=== PATIENT | male | born 1965 | race Caucasian/White ===

== ENCOUNTER → 2018-02-02 16:37 | Outpatient (CLI) | payer OTHER, MEDICAID, SELFPAY ==
[2018-02-02 18:49] LABS: Urine N gonorrhoeae NOT DETECTED
[2018-02-02 19:06] LABS: Urine Chlamydia NOT DETECTED
[2018-02-05 13:22] LABS: Hepatitis A Antibody IgM NONREACTIVE; Hepatitis Acute Panel Interp 0.02; Hepatitis B Core Antibody IgM NONREACTIVE; Hepatitis B Surface Antigen NONREACTIVE; Hepatitis C Antibody NONREACTIVE
[2018-02-07 13:19] LABS: HSV 1 IgM Screen Negative (Negative); HSV 2 IgM Screen Negative (Negative)
[2018-02-09 13:41] LABS: Rapid Plasma Reagin NON-REACTIVE
== END ==
PROVIDERS: Visit Provider Physician Assistant
DX: A64 Unspecified sexually transmitted disease (principal)
CPT/HCPCS: 36415; 80074; 86592; 86694; 87491; 87591

== ENCOUNTER 2018-03-28 16:46 | Emergency (ER) | payer OTHER, MEDICAID, SELFPAY ==
--- NOTE | 2018-03-28 | DI.RAD.S_ITS ---
PROCEDURE: XR LUMBAR SPINE 2-3V INDICATIONS: PAIN TECHNIQUE: 3 views of the lumbar spine were acquired. COMPARISON: [facility], CR, XR THORACIC SPINE 3V, 03/28/2018, 18:12. FINDINGS: Bones: 5 [id number] vertebrae are present. There is normal bony alignment. No vertebral body compression fractures. No suspicious bony lesions. Mild to moderate disc space narrowing is seen at the L5-S1 level. The disc heights otherwise are well-preserved. Soft tissues: Overlying bowel gas pattern is normal. No suspicious soft tissue calcifications. Presumed appendectomy clips are seen. IMPRESSION: Focal L5-S1 degenerative change is seen. No acute bony abnormality is seen. Presumed prior appendectomy. Dictated by: Abelino Prasad M.D. on 03/28/2018 at 17:39 Approved by: Abelino Prasad M.D. on 03/28/2018 at 17:40
[2018-03-28 16:59] VITALS: BP 158/92; PULSE 67; RESP 18; TEMP 36.4; O2SAT 100
--- NOTE | 2018-03-28 17:02 | DI.RAD.S_ITS ---
PROCEDURE: XR ANKLE RT MIN 3V INDICATIONS: rt ankle pain, fall from roof TECHNIQUE: 3 views of the ankle were acquired. COMPARISON: None. FINDINGS: Bones: There is a highly comminuted fracture seen of the calcaneus. No additional fractures are detected. Ankle mortise is normally aligned. No suspicious bony lesions. The talar dome demonstrates no ev abnormality. Soft tissues: No significant soft tissue abnormality can be seen. IMPRESSION: Highly comminuted fracture of the calcaneus. Please consider a dedicated CT study for further evaluation. Dictated by: Abelino Prasad M.D. on 03/28/2018 at 16:29 Approved by: Abelino Prasad M.D. on 03/28/2018 at 16:30
--- NOTE | 2018-03-28 17:46 | DI.CT.S_ITS ---
PROCEDURE: CT LE RT WO CON INDICATIONS: Calcaneous fracture TECHNIQUE: Noncontrast 1-1.5 mm axial sections acquired from above the tibiotalar joint to the bottom of the calcaneus, with coronal and sagittal reformats. COMPARISON: [facility], CR, XR ANKLE RT MIN 3V, 03/28/2018, 17:12. FINDINGS: Image quality: Excellent. Bones: There is an extensive comminuted fracture of the calcaneus with fracture lines extending to all facets of the subtalar joint and the calcaneocuboid articulation. Fracture also extends to the insertion of the Achilles tendon posteriorly. Remaining visualized osseous structures appear intact. No tibiotalar joint effusion. Soft tissues: The Achilles tendon appears intact. The visualized flexor, extensor, and peroneal tendons also appear intact. There is subcutaneous edema demonstrated in the hindfoot. IMPRESSION: 1. Extensive comminuted fracture of the calcaneus with extension to the subtalar joint and calcaneal cuboid articulation. Dictated by: Major Paige M.D. on 03/28/2018 at 18:54 Approved by: Major Paige M.D. on 03/28/2018 at 19:03
--- NOTE | 2018-03-28 17:46 | DI.RAD.S_ITS ---
PROCEDURE: XR THORACIC SPINE 3V INDICATIONS: fall TECHNIQUE: 3 views of the thoracic spine were acquired. COMPARISON: None. FINDINGS: Bones: No fractures or dislocations. No suspicious bony lesions. 12 pairs of ribs are noted, and appear intact where visualized. Soft tissues: No paravertebral stripe thickening. IMPRESSION: 1. No fracture or subluxation. Dictated by: Major Paige M.D. on 03/28/2018 at 19:40 Approved by: Major Paige M.D. on 03/28/2018 at 19:41
[2018-03-28] MEDS: MORPHINE 4 MG/ML INJ IM (18:05)
[2018-03-28] MEDS: ONDANSETRON 4 MG ODT PO (18:05)
--- NOTE | 2018-03-28 18:54 | ED.LOWEXIN ---
HPI - Extremity Injury (Lower) <TRUPTI JonesBC - Last Filed: 03/28/18 21:46> General Chief Complaint: Extremity Injury, Lower Stated Complaint: FALL FROM ROOF, THINKS BROKE HIS RIGHT ANKLE Time Seen by Provider: 03/28/18 17:40 Source: patient and family Mode of arrival: wheelchair Limitations: no limitations History of Present Illness HPI Narrative: Patient is a healthy 53-year-old male who presents after falling off of a 12 ft roof. He states he slipped, held onto the gutter and then landed on his right foot and ankle. He presents with chief complaint of right ankle pain and right foot pain. He denies any C-spine tenderness or spinal tenderness. He denies any his head, loss of consciousness hip pain abdominal pain or any other pain other than his foot pain. He states he is able to wiggle his toes. He denies previous injury to that ankle. He denies laceration abrasion or injury to the skin. He denies hitting his head, neck pain or back pain. Related Data Home Medications Medication Instructions Recorded Confirmed omeprazole 20 mg capsule,delayed 20 mg PO DAILY 02/02/18 02/02/18 release Previous Rx's Medication Instructions Recorded triamcinolone acetonide 1 libertad TOPICAL BID #15 gm 06/24/16 ondansetron 4 mg PO TID-QID PRN #10 tab 03/28/18 oxycodone-acetaminophen 2 tab PO Q4-6H PRN #20 tab 03/28/18 Allergies Allergy/AdvReac Type Severity Reaction Status Date / Time dog dander [DOG DANDER] Allergy Unknown Unverified 02/02/18 16:11 Review of Systems <GLADYS Jones - Last Filed: 03/28/18 21:46> Review of Systems GENERAL: Denies chills, fatigue, malaise, fever, sweats. HEENT: Denies sinus pain, ear pain, sore throat, difficulty swallowing, dizziness. RESPIRATORY: Denies dyspnea, cough, wheezing, hemoptysis, sputum. CARDIOVASCULAR: Denies chest pain, palpitations, orthopnea, edema, GASTROINTESTINAL: Denies nausea, vomiting, abdominal pain, diarrhea, constipation, melena. : Denies dysuria, frequency, incontinence, hematuria, urinary retention. MUSCULOSKELETAL: See HPI SKIN: See HPI NEUROLOGIC: Denies weakness, headache, numbness, change in speech, confusion, seizures, incoordination. PSYCHIATRIC: No concerning psychosocial issues. 12 point review of systems is negative except for those stated above Exam <KAREN Jones-BC - Last Filed: 03/28/18 21:46> Narrative Exam Narrative: GENERAL: This is a well-nourished, well-developed patient, lying on stretcher HEAD: Atraumatic. Normocephalic. No temporal or scalp tenderness. EYES: Pupils equal round and reactive. Extraocular motions intact. No scleral icterus. No injection or drainage. ENT: Nose without bleeding, purulent drainage or septal hematoma. Throat without erythema, tonsillar hypertrophy or exudate. Uvula midline. Airway patent. NECK: Trachea midline. No JVD or lymphadenopathy. Supple, nontender, no meningeal signs. CARDIOVASCULAR: Regular rate and rhythm without murmurs, gallops, or rubs. RESPIRATORY: Clear to auscultation. Breath sounds equal bilaterally. No wheezes, rales, or rhonchi. GASTROINTESTINAL: Abdomen soft, non-tender, nondistended. No hepato-splenomegaly, or palpable masses. No guarding. EXTREMITIES: pain to palpation noted right ft and ankle. Positive pedal pulses. Patient is able to wiggle all 5 toes on his right foot. Pelvis is stable to rock. BACK: Nontender without deformity or crepitance. No flank tenderness. No pain to C-spine or spinal palpation. NEURO: AOx3. Cranial nerves grossly intact. Strength equal upper and lower extremity bilaterally. SKIN: Slight edema noted right ankle and heel. Skin is intact no abrasion or laceration. Initial Vital Signs Initial Vital Signs: Vital Signs Temperature 97.6 F 03/28/18 16:59 Pulse Rate 67 03/28/18 16:59 Respiratory Rate 18 03/28/18 16:59 Blood Pressure 158/92 H 03/28/18 16:59 Pulse Oximetry 100 03/28/18 16:59 <Vinod Barr DO - Last Filed: 03/28/18 22:13> Initial Vital Signs Initial Vital Signs: Vital Signs Temperature 97.6 F 03/28/18 16:59 Pulse Rate 67 03/28/18 16:59 Respiratory Rate 18 03/28/18 16:59 Blood Pressure 158/92 H 03/28/18 16:59 Pulse Oximetry 100 03/28/18 16:59 Procedures <China ForbesKAREN-BC - Last Filed: 03/28/18 21:46> Orthopedic Splinting/Casting Injury #1: Side: right Lower Extremity Injury Location: ankle and foot Lower Extremity Immobilizer: posterior splint and Nash wrap Other Orthopedic Equipment: crutches Additional Comments: Pulse motor sensory intact before and after splint application. Course <China MiguelKAREN pickett-BC - Last Filed: 03/28/18 21:46> Course Narrative: I checked on the patient several times throughout his stay in the emergency department. Given the patient's mechanism of injury, I elected to get plain films of his L-spine and T-spine as well. Orders Ordered: ED Orders 03/28/18 17:02 XR ankle RT min 3V Stat 03/28/18 17:46 CT LE RT wo con Stat XR thoracic spine 3V Stat Discontinued Medications Morphine Sulfate (Morphine) 4 mg IM NOW ONE Stop: 03/28/18 17:47 Last Admin: 03/28/18 18:05 Dose: 4 mg Ondansetron HCl (Zofran Odt) 4 mg PO NOW ONE Stop: 03/28/18 17:47 Last Admin: 03/28/18 18:05 Dose: 4 mg Oxycodone/Acetaminophen (Percocet 5/325) 2 tab PO NOW ONE Stop: 03/28/18 19:50 Last Admin: 03/28/18 20:17 Dose: 2 tab Oxycodone/Acetaminophen (Endocet 5/325 Prepack) 1 bottle MISC SEEINSTR ONE Stop: 03/28/18 21:27 Last Admin: 03/28/18 21:33 Dose: 1 bottle Consultations Consultation #1: I spoke with Dr. Stanford from [facility] given the complexity of the patient's fracture. He suggested a back slab splint that was bulky, nonweightbearing and to call [facility] in the morning. He also suggested the patient be seen by Dr. Sena if able, and that would be organized in the morning if possible. Otherwise the patient may be referred down to [place]. I discussed this at length with the patient. Vital Signs - 8 hr 03/28/18 16:59 03/28/18 20:43 Temperature 97.6 F Pulse Rate 67 75 Respiratory Rate 18 15 Blood Pressure 158/92 H Blood Pressure [Right Arm] 142/86 H Pulse Oximetry 100 100 <Vinod Barr DO - Last Filed: 03/28/18 22:13> Orders Ordered: ED Orders 03/28/18 17:02 XR ankle RT min 3V Stat 03/28/18 17:46 CT LE RT wo con Stat XR thoracic spine 3V Stat Discontinued Medications Morphine Sulfate (Morphine) 4 mg IM NOW ONE Stop: 03/28/18 17:47 Last Admin: 03/28/18 18:05 Dose: 4 mg Ondansetron HCl (Zofran Odt) 4 mg PO NOW ONE Stop: 03/28/18 17:47 Last Admin: 03/28/18 18:05 Dose: 4 mg Oxycodone/Acetaminophen (Percocet 5/325) 2 tab PO NOW ONE Stop: 03/28/18 19:50 Last Admin: 03/28/18 20:17 Dose: 2 tab Oxycodone/Acetaminophen (Endocet 5/325 Prepack) 1 bottle MISC SEEINSTR ONE Stop: 03/28/18 21:27 Last Admin: 03/28/18 21:33 Dose: 1 bottle Vital Signs - 8 hr 03/28/18 16:59 03/28/18 20:43 Temperature 97.6 F Pulse Rate 67 75 Respiratory Rate 18 15 Blood Pressure 158/92 H Blood Pressure [Right Arm] 142/86 H Pulse Oximetry 100 100 MDM - Extremity Injury (Lower) <GLADYS Jones - Last Filed: 03/28/18 21:46> Differential Diagnosis Likely ankle sprain and strain, fracture of toe and ankle fracture Imaging Data ankle xray: Radiologist's impression: [address] [address] XRay Report Signed Patient: Marky Gonzalez WMR#: [id number] : 1965Acct:[id number] Age/Sex: 53 / MDate of Service: 03/28/18 Loc: ED Accession Number: [id number] Procedure: XR ankle RT min 3V Ordering Provider: Sherita Palafox D.O. PROCEDURE: XR ANKLE RT MIN 3V INDICATIONS: rt ankle pain, fall from roof TECHNIQUE: 3 views of the ankle were acquired. COMPARISON: None. FINDINGS: Bones: There is a highly comminuted fracture seen of the calcaneus. No additional fractures are detected. Ankle mortise is normally aligned. No suspicious bony lesions. The talar dome demonstrates no ev abnormality. Soft tissues: No significant soft tissue abnormality can be seen. IMPRESSION: Highly comminuted fracture of the calcaneus. Please consider a dedicated CT study for further evaluation. Dictated by: Abelino Prasad M.D. on 03/28/2018 at 16:29 Approved by: Abelino Prasad M.D. on 03/28/2018 at 16:30 lumbar xray : Radiologist's impression: [address] [address] XRay Report Signed Patient: Marky Gonzalez WMR#: [id number] : 1965Acct:[id number] Age/Sex: 53 / MDate of Service: 03/28/18 Loc: ED Accession Number: [id number] Procedure: XR lumbar spine 2-3V Ordering Provider: China Forbes- PROCEDURE: XR LUMBAR SPINE 2-3V INDICATIONS: PAIN TECHNIQUE: 3 views of the lumbar spine were acquired. COMPARISON: [facility], [place], XR THORACIC SPINE 3V, 03/28/2018, 18:12. FINDINGS: Bones: 5 [id number] vertebrae are present. There is normal bony alignment. No vertebral body compression fractures. No suspicious bony lesions. Mild to moderate disc space narrowing is seen at the L5-S1 level. The disc heights otherwise are well-preserved. Soft tissues: Overlying bowel gas pattern is normal. No suspicious soft tissue calcifications. Presumed appendectomy clips are seen. IMPRESSION: Focal L5-S1 degenerative change is seen. No acute bony abnormality is seen. Presumed prior appendectomy. Dictated by: Abelino Prasad M.D. on 03/28/2018 at 17:39 Approved by: Abelino Prasad M.D. on 03/28/2018 at 17:40 t spine xray : Radiologist's impression: [address] [address] XRay Report Signed Patient: Marky Gonzalez WMR#: [id number] : 1965Acct:[id number] Age/Sex: 53 / MDate of Service: 03/28/18 Loc: ED Accession Number: [id number] Procedure: XR thoracic spine 3V Ordering Provider: China Forbes PROCEDURE: XR THORACIC SPINE 3V INDICATIONS: fall TECHNIQUE: 3 views of the thoracic spine were acquired. COMPARISON: None. FINDINGS: Bones: No fractures or dislocations. No suspicious bony lesions. 12 pairs of ribs are noted, and appear intact where visualized. Soft tissues: No paravertebral stripe thickening. IMPRESSION: 1. No fracture or subluxation. Dictated by: Major Paige M.D. on 03/28/2018 at 19:40 Approved by: Major Paige M.D. on 03/28/2018 at 19:[address] : Radiologist's impression: [place] [address] CT Scan Report Signed Patient: Marky Gonzalez WMR#: [id number] : 1965Acct:[id number] Age/Sex: 53 / MDate of Service: 03/28/18 Loc: ED Accession Number: [id number] Procedure: CT LE RT wo con Ordering Provider: China Forbes PROCEDURE: CT LE RT WO CON INDICATIONS: Calcaneous fracture TECHNIQUE: Noncontrast 1-1.5 mm axial sections acquired from above the tibiotalar joint to the bottom of the calcaneus, with coronal and sagittal reformats. COMPARISON: [facility], CR, XR ANKLE RT MIN 3V, 03/28/2018, 17:12. FINDINGS: Image quality: Excellent. Bones: There is an extensive comminuted fracture of the calcaneus with fracture lines extending to all facets of the subtalar joint and the calcaneocuboid articulation. Fracture also extends to the insertion of the Achilles tendon posteriorly. Remaining visualized osseous structures appear intact. No tibiotalar joint effusion. Soft tissues: The Achilles tendon appears intact. The visualized flexor, extensor, and peroneal tendons also appear intact. There is subcutaneous edema demonstrated in the hindfoot. IMPRESSION: 1. Extensive comminuted fracture of the calcaneus with extension to the subtalar joint and calcaneal cuboid articulation. Dictated by: Major Paige M.D. on 03/28/2018 at 18:54 Approved by: Major Paige M.D. on 03/28/2018 at 19:03 [facility] Narrative Medical decision making narrative: Patient is a 53-year-old male who fell off of a 12 ft roof. He has a complex comminuted calcaneus fracture. Expert consultation was obtained from Dr. Stanford and the patient was splinted appropriately with a posterior splint. Pulse motor and sensory were intact before and after splint application. I discussed at length return precautions of cold toes, concerned for circulation. I encouraged him to call [facility] 1st thing in the morning as discussed with the on-call physician. Given the mechanism of injury, the patient also had T and L-spine films taken which were negative. Patient was given pain medication and nausea medication the emergency department as well as a take home pack and prescriptions. He had no questions or concerns upon discharge. We discussed at length being nonweightbearing and return precautions to the emergency department as well as rest ice compression elevation. Discharge Plan Departure Patient Disposition: Home Clinical Impression: Calcaneus fracture, right Discharge Date/Time: 03/28/18 21:35 Interventions: ED Discharge Assessment Last Done: 03/28/18 21:35 Instructions: How to Use Crutches, How To Perform RICE (Rest, Ice, Compress, Elevate), DI for Calcaneus Fracture Activity Restrictions/Additional Instructions: Please use rest ice compression elevation for her calcaneus fracture. Please monitor the circulation in your toes and come back to the emergency department if necessary. Please be nonweightbearing please call [facility] in the morning. I spoke with Dr. Hernandez about you lucia as he was on-call, but he stated that Dr. Sena would be the best one to see you with your fracture. If she is not available, they may refer you down to [place]. Please aggressively ice and elevate your foot. Prescriptions: New ondansetron 4 mg tablet,disintegrating 4 mg PO TID-QID PRN (Reason: nausea and vomiting) Qty: 10 RF: 0 oxycodone-acetaminophen 5-300 mg tablet 2 tab PO Q4-6H PRN (Reason: pain) Qty: 20 RF: 0 No Action omeprazole 20 mg capsule,delayed release(DR/EC) 20 mg PO DAILY RF: 0 triamcinolone acetonide 0.5 % cream 1 libertad Topical BID Qty: 15 RF: 3 Referrals: [facility] [Provider Group] <Vinod Barr DO - Last Filed: 03/28/18 22:13> Cosign ED Attending Coscolleenature Attestation: I was available for consultation during this patient's emergency department encounter
--- NOTE | 2018-03-28 18:58 | ED_ITS ---
HPI - Extremity Injury (Lower) <TRUPTI JonesBC - Last Filed: 03/28/18 21:46> General Chief Complaint: Extremity Injury, Lower Stated Complaint: FALL FROM ROOF, THINKS BROKE HIS RIGHT ANKLE Time Seen by Provider: 03/28/18 17:40 Source: patient and family Mode of arrival: wheelchair Limitations: no limitations History of Present Illness HPI Narrative: Patient is a healthy 53-year-old male who presents after falling off of a 12 ft roof. He states he slipped, held onto the gutter and then landed on his right foot and ankle. He presents with chief complaint of right ankle pain and right foot pain. He denies any C-spine tenderness or spinal tenderness. He denies any his head, loss of consciousness hip pain abdominal pain or any other pain other than his foot pain. He states he is able to wiggle his toes. He denies previous injury to that ankle. He denies laceration abrasion or injury to the skin. He denies hitting his head, neck pain or back pain. Related Data Home Medications Medication Instructions Recorded Confirmed omeprazole 20 mg capsule,delayed 20 mg PO DAILY 02/02/18 02/02/18 release Previous Rx's Medication Instructions Recorded triamcinolone acetonide 1 libertad TOPICAL BID #15 gm 06/24/16 ondansetron 4 mg PO TID-QID PRN #10 tab 03/28/18 oxycodone-acetaminophen 2 tab PO Q4-6H PRN #20 tab 03/28/18 Allergies Allergy/AdvReac Type Severity Reaction Status Date / Time dog dander [DOG DANDER] Allergy Unknown Unverified 02/02/18 16:11 Review of Systems <GLADYS Jones - Last Filed: 03/28/18 21:46> Review of Systems GENERAL: Denies chills, fatigue, malaise, fever, sweats. HEENT: Denies sinus pain, ear pain, sore throat, difficulty swallowing, dizziness. RESPIRATORY: Denies dyspnea, cough, wheezing, hemoptysis, sputum. CARDIOVASCULAR: Denies chest pain, palpitations, orthopnea, edema, GASTROINTESTINAL: Denies nausea, vomiting, abdominal pain, diarrhea, constipation, melena. : Denies dysuria, frequency, incontinence, hematuria, urinary retention. MUSCULOSKELETAL: See HPI SKIN: See HPI NEUROLOGIC: Denies weakness, headache, numbness, change in speech, confusion, seizures, incoordination. PSYCHIATRIC: No concerning psychosocial issues. 12 point review of systems is negative except for those stated above Exam <KAREN Jones-BC - Last Filed: 03/28/18 21:46> Narrative Exam Narrative: GENERAL: This is a well-nourished, well-developed patient, lying on stretcher HEAD: Atraumatic. Normocephalic. No temporal or scalp tenderness. EYES: Pupils equal round and reactive. Extraocular motions intact. No scleral icterus. No injection or drainage. ENT: Nose without bleeding, purulent drainage or septal hematoma. Throat without erythema, tonsillar hypertrophy or exudate. Uvula midline. Airway patent. NECK: Trachea midline. No JVD or lymphadenopathy. Supple, nontender, no meningeal signs. CARDIOVASCULAR: Regular rate and rhythm without murmurs, gallops, or rubs. RESPIRATORY: Clear to auscultation. Breath sounds equal bilaterally. No wheezes , rales, or rhonchi. GASTROINTESTINAL: Abdomen soft, non-tender, nondistended. No hepato-splenomegaly , or palpable masses. No guarding. EXTREMITIES: pain to palpation noted right ft and ankle. Positive pedal pulses. Patient is able to wiggle all 5 toes on his right foot. Pelvis is stable to rock. BACK: Nontender without deformity or crepitance. No flank tenderness. No pain to C-spine or spinal palpation. NEURO: AOx3. Cranial nerves grossly intact. Strength equal upper and lower extremity bilaterally. SKIN: Slight edema noted right ankle and heel. Skin is intact no abrasion or laceration. Initial Vital Signs Initial Vital Signs: Vital Signs Temperature 97.6 F 03/28/18 16:59 Pulse Rate 67 03/28/18 16:59 Respiratory Rate 18 03/28/18 16:59 Blood Pressure 158/92 H 03/28/18 16:59 Pulse Oximetry 100 03/28/18 16:59 <Vinod Barr DO - Last Filed: 03/28/18 22:13> Initial Vital Signs Initial Vital Signs: Vital Signs Temperature 97.6 F 03/28/18 16:59 Pulse Rate 67 03/28/18 16:59 Respiratory Rate 18 03/28/18 16:59 Blood Pressure 158/92 H 03/28/18 16:59 Pulse Oximetry 100 03/28/18 16:59 Procedures <China ForbesKAREN-BC - Last Filed: 03/28/18 21:46> Orthopedic Splinting/Casting Injury #1: Side: right Lower Extremity Injury Location: ankle and foot Lower Extremity Immobilizer: posterior splint and Nash wrap Other Orthopedic Equipment: crutches Additional Comments: Pulse motor sensory intact before and after splint application. Course <China MiguelKAREN pickett-BC - Last Filed: 03/28/18 21:46> Course Narrative: I checked on the patient several times throughout his stay in the emergency department. Given the patient's mechanism of injury, I elected to get plain films of his L-spine and T-spine as well. Orders Ordered: ED Orders 03/28/18 17:02 XR ankle RT min 3V Stat 03/28/18 17:46 CT LE RT wo con Stat XR thoracic spine 3V Stat Discontinued Medications Morphine Sulfate (Morphine) 4 mg IM NOW ONE Stop: 03/28/18 17:47 Last Admin: 03/28/18 18:05 Dose: 4 mg Ondansetron HCl (Zofran Odt) 4 mg PO NOW ONE Stop: 03/28/18 17:47 Last Admin: 03/28/18 18:05 Dose: 4 mg Oxycodone/Acetaminophen (Percocet 5/325) 2 tab PO NOW ONE Stop: 03/28/18 19:50 Last Admin: 03/28/18 20:17 Dose: 2 tab Oxycodone/Acetaminophen (Endocet 5/325 Prepack) 1 bottle MISC SEEINSTR ONE Stop: 03/28/18 21:27 Last Admin: 03/28/18 21:33 Dose: 1 bottle Consultations Consultation #1: I spoke with Dr. Stanford from [facility] given the complexity of the patient's fracture. He suggested a back slab splint that was bulky, nonweightbearing and to call [facility] in the morning. He also suggested the patient be seen by Dr. Sena if able, and that would be organized in the morning if possible. Otherwise the patient may be referred down to [place]. I discussed this at length with the patient. Vital Signs - 8 hr 03/28/18 16:59 03/28/18 20:43 Temperature 97.6 F Pulse Rate 67 75 Respiratory Rate 18 15 Blood Pressure 158/92 H Blood Pressure [Right Arm] 142/86 H Pulse Oximetry 100 100 <Vinod Barr DO - Last Filed: 03/28/18 22:13> Orders Ordered: ED Orders 03/28/18 17:02 XR ankle RT min 3V Stat 03/28/18 17:46 CT LE RT wo con Stat XR thoracic spine 3V Stat Discontinued Medications Morphine Sulfate (Morphine) 4 mg IM NOW ONE Stop: 03/28/18 17:47 Last Admin: 03/28/18 18:05 Dose: 4 mg Ondansetron HCl (Zofran Odt) 4 mg PO NOW ONE Stop: 03/28/18 17:47 Last Admin: 03/28/18 18:05 Dose: 4 mg Oxycodone/Acetaminophen (Percocet 5/325) 2 tab PO NOW ONE Stop: 03/28/18 19:50 Last Admin: 03/28/18 20:17 Dose: 2 tab Oxycodone/Acetaminophen (Endocet 5/325 Prepack) 1 bottle MISC SEEINSTR ONE Stop: 03/28/18 21:27 Last Admin: 03/28/18 21:33 Dose: 1 bottle Vital Signs - 8 hr 03/28/18 16:59 03/28/18 20:43 Temperature 97.6 F Pulse Rate 67 75 Respiratory Rate 18 15 Blood Pressure 158/92 H Blood Pressure [Right Arm] 142/86 H Pulse Oximetry 100 100 MDM - Extremity Injury (Lower) <GLADYS Jones - Last Filed: 03/28/18 21:46> Differential Diagnosis Likely ankle sprain and strain, fracture of toe and ankle fracture Imaging Data ankle xray: Radiologist's impression: [address] [address] XRay Report Signed Patient: Marky Gonzalez WMR#: [id number] : 1965Acct:[id number] Age/Sex: 53 / MDate of Service: 03/28/18 Loc: ED Accession Number: [id number] Procedure: XR ankle RT min 3V Ordering Provider: Sherita Palafox D.O. PROCEDURE: XR ANKLE RT MIN 3V INDICATIONS: rt ankle pain, fall from roof TECHNIQUE: 3 views of the ankle were acquired. COMPARISON: None. FINDINGS: Bones: There is a highly comminuted fracture seen of the calcaneus. No additional fractures are detected. Ankle mortise is normally aligned. No suspicious bony lesions. The talar dome demonstrates no ev abnormality. Soft tissues: No significant soft tissue abnormality can be seen. IMPRESSION: Highly comminuted fracture of the calcaneus. Please consider a dedicated CT study for further evaluation. Dictated by: Abelino Prasad M.D. on 03/28/2018 at 16:29 Approved by: Abelino Prasad M.D. on 03/28/2018 at 16:30 lumbar xray : Radiologist's impression: [address] [address] XRay Report Signed Patient: Marky Gonzalez WMR#: [id number] : 1965Acct:[id number] Age/Sex: 53 / MDate of Service: 03/28/18 Loc: ED Accession Number: [id number] Procedure: XR lumbar spine 2-3V Ordering Provider: China Forbes- PROCEDURE: XR LUMBAR SPINE 2-3V INDICATIONS: PAIN TECHNIQUE: 3 views of the lumbar spine were acquired. COMPARISON: [facility], ANN[place], XR THORACIC SPINE 3V, 03/28/2018, 18:12. FINDINGS: Bones: 5 [id number]-[id number] vertebrae are present. There is normal bony alignment. No vertebral body compression fractures. No suspicious bony lesions. Mild to moderate disc space narrowing is seen at the L5-S1 level. The disc heights otherwise are well-preserved. Soft tissues: Overlying bowel gas pattern is normal. No suspicious soft tissue calcifications. Presumed appendectomy clips are seen. IMPRESSION: Focal L5-S1 degenerative change is seen. No acute bony abnormality is seen. Presumed prior appendectomy. Dictated by: Abelino Prasad M.D. on 03/28/2018 at 17:39 Approved by: Abelino Prasad M.D. on 03/28/2018 at 17:40 t spine xray : Radiologist's impression: [address] [address] XRay Report Signed Patient: Marky Gonzalez WMR#: [id number] : 1965Acct:[id number] Age/Sex: 53 / MDate of Service: 03/28/18 Loc: ED Accession Number: [id number] Procedure: XR thoracic spine 3V Ordering Provider: China Forbes PROCEDURE: XR THORACIC SPINE 3V INDICATIONS: fall TECHNIQUE: 3 views of the thoracic spine were acquired. COMPARISON: None. FINDINGS: Bones: No fractures or dislocations. No suspicious bony lesions. 12 pairs of ribs are noted, and appear intact where visualized. Soft tissues: No paravertebral stripe thickening. IMPRESSION: 1. No fracture or subluxation. Dictated by: Major Paige M.D. on 03/28/2018 at 19:40 Approved by: Major Paige M.D. on 03/28/2018 at 19:[address] : Radiologist's impression: [place] [address] CT Scan Report Signed Patient: Marky Gonzalez WMR#: [id number] : 1965Acct:[id number] Age/Sex: 53 / MDate of Service: 03/28/18 Loc: ED Accession Number: [id number] Procedure: CT LE RT wo con Ordering Provider: China Forbes PROCEDURE: CT LE RT WO CON INDICATIONS: Calcaneous fracture TECHNIQUE: Noncontrast 1-1.5 mm axial sections acquired from above the tibiotalar joint to the bottom of the calcaneus, with coronal and sagittal reformats. COMPARISON: [facility], [place], XR ANKLE RT MIN 3V, 03/28/2018, 17:12. FINDINGS: Image quality: Excellent. Bones: There is an extensive comminuted fracture of the calcaneus with fracture lines extending to all facets of the subtalar joint and the calcaneocuboid articulation. Fracture also extends to the insertion of the Achilles tendon posteriorly. Remaining visualized osseous structures appear intact. No tibiotalar joint effusion. Soft tissues: The Achilles tendon appears intact. The visualized flexor, extensor, and peroneal tendons also appear intact. There is subcutaneous edema demonstrated in the hindfoot. IMPRESSION: 1. Extensive comminuted fracture of the calcaneus with extension to the subtalar joint and calcaneal cuboid articulation. Dictated by: Major Paige M.D. on 03/28/2018 at 18:54 Approved by: Major Paige M.D. on 03/28/2018 at 19:03 [facility] Narrative Medical decision making narrative: Patient is a 53-year-old male who fell off of a 12 ft roof. He has a complex comminuted calcaneus fracture. Expert consultation was obtained from Dr. Stanford and the patient was splinted appropriately with a posterior splint. Pulse motor and sensory were intact before and after splint application. I discussed at length return precautions of cold toes, concerned for circulation. I encouraged him to call [facility] 1st thing in the morning as discussed with the on-call physician. Given the mechanism of injury, the patient also had T and L-spine films taken which were negative. Patient was given pain medication and nausea medication the emergency department as well as a take home pack and prescriptions. He had no questions or concerns upon discharge. We discussed at length being nonweightbearing and return precautions to the emergency department as well as rest ice compression elevation. Discharge Plan Departure Patient Disposition: Home Clinical Impression: Calcaneus fracture, right Discharge Date/Time: 03/28/18 21:35 Interventions: ED Discharge Assessment Last Done: 03/28/18 21:35 Instructions: How to Use Crutches, How To Perform RICE (Rest, Ice, Compress, Elevate), DI for Calcaneus Fracture Activity Restrictions/Additional Instructions: Please use rest ice compression elevation for her calcaneus fracture. Please monitor the circulation in your toes and come back to the emergency department if necessary. Please be nonweightbearing please call [facility] in the morning. I spoke with Dr. Hernandez about you lucia as he was on-call, but he stated that Dr. eSna would be the best one to see you with your fracture. If she is not available, they may refer you down to [place]. Please aggressively ice and elevate your foot. Prescriptions: New ondansetron 4 mg tablet,disintegrating 4 mg PO TID-QID PRN (Reason: nausea and vomiting) Qty: 10 RF: 0 oxycodone-acetaminophen 5-300 mg tablet 2 tab PO Q4-6H PRN (Reason: pain) Qty: 20 RF: 0 No Action omeprazole 20 mg capsule,delayed release(DR/EC) 20 mg PO DAILY RF: 0 triamcinolone acetonide 0.5 % cream 1 libertad Topical BID Qty: 15 RF: 3 Referrals: [facility] [Provider Group] <Vinod Barr DO - Last Filed: 03/28/18 22:13> Cosign ED Attending Coscolleenature Attestation: I was available for consultation during this patient's emergency department encounter
[2018-03-28] MEDS: OXYCODONE/ACETAMINOPHEN 5/325 TABLET 2 TAB PO (20:17)
[2018-03-28 20:43] VITALS: BP 142/86; PULSE 75; RESP 15; O2SAT 100
[2018-03-28] MEDS: OXYCODONE/APAP 5/325 PREPACK 1 BOTTLE MISC (21:33)
== END 2018-03-28 21:35 | disposition home or self-care (01) ==
PROVIDERS: Emergency Provider Nurse Practitioner Family
DX: S92.001A Unspecified fracture of right calcaneus, initial encounter for closed fracture (principal); W13.2XXA Fall from, out of or through roof, initial encounter
CPT/HCPCS: 29515; 72072; 72100; 73610; 73700; 96372; 99282; 99284; J2270

== ENCOUNTER 2018-08-25 12:00 | Outpatient (RCR) | payer OTHER, MEDICAID, SELFPAY ==
--- NOTE | 2018-05-24 17:41 | PT.OIE ---
Current Diagnoses Pain in right ankle and joints of right foot (05/24/18) Stiffness of right ankle, not elsewhere classified (05/24/18) Stiffness of right foot, not elsewhere classified (05/24/18) Unspecified fracture of right calcaneus, subsequent encounter for fracture with routine healing (05/24/18) Fall from, out of or through roof, subsequent encounter (05/24/18) Encounter for other orthopedic aftercare (05/24/18) Past Surgical History (Last Reviewed 03/28/18 @ 18:55 by KAREN Jones-) Status post appendectomy Provider Visit Care Team Role Provider Type Marie Kimble PA-C Primary Care Provider [employer] Billing Specialist Specialty: Medical Address: [address] [place] [address], [address] Email: [email or web address] Vinod Chandra MD Attending Provider Non-Staff Specialty: Orthopedics Address: [address] [place] [address], [id number], [place], [address] Fax: Email: Physical Therapy Initial Evaluation PT-OP-A Visit Information Start: 05/24/18 16:09 Freq: Status: Active Protocol: Document 05/24/18 12:00 DCW (Rec: 05/24/18 17:37 DCW [id number]) Out-Patient Physical Therapy Visit Information Visit Information Visit Type Initial Evaluation Visit Start Time 12:00 Visit Stop Time 12:45 Total Visit Minutes 45 Visit Number 1 Number of TREATING PLANT SUPERVISOR Visits 0 Evaluation Information Evaluation Date 05/24/18 Precautions Precautions Start 50% weight-bearing for two weeks, then progress to 75 % two weeks, then progress to full weight-bearing over two weeks PT-OP-B Current Condition Start: 05/24/18 16:09 Freq: Status: Active Protocol: Document 05/24/18 12:00 DCW (Rec: 05/24/18 17:37 DCW [id number]) Current Condition History of Current Condition Onset Date 03/28/18 Current Complaints Ankle pain, stiffness, limited weight-bearing s/p calcaneous fracture History of Current Condition Pt is a 53 year old male who suffered a fall of ~12 feet from his roof on 03/28/18, resulting in a right closed, displaced intra-articular calcaneal fracture. Pt then underwent an ORIF surgery on 04/05/18, and has been non- weight-bearing in a [place] since that time. Pt reports he has been incredibly limited recently, and is unable to work, walk, work-out, and has to go up and down the stairs sliding on my butt. Pt reports his pain has been very well controlled, reporting only a 1/10 currently, and althout he took a Tylenol earlier today in preparation for therapy, he has not taken any other meds for pain over the last five days. 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 Prior Functional Status Baseline Function- ADL's Independent Baseline Function- Mobility Independent Current Functional Impairments (Reported) Functional Limitations- ADL's Currently non-weightbearing, unable to ascend/descend stairs on feet Functional Limitations- Work/School Unable to work at this time Functional Limitations- Recreation/ Unable to hike Hobbies PT-OP-C Subjective Start: 05/24/18 16:09 Freq: Status: Active Protocol: Document 05/24/18 12:00 DCW (Rec: 05/24/18 17:37 DCW [id number]) OP-PT Subjective Patient Comments Patient Comments I've been doing my exercises (ankle circles, inversion/ eversion, Ankle alphabet, toe flexion) 3x/day, but other than that I'm not really able to do a whole lot. Patient Questionnaires Foot & Ankle Ability Measure- ADL and Sports FAAM-ADL Score 34/84 = 40.48 FAAM-ADL Impairment 40 to 59% Impaired (Score 33- 49) FAAM-Sport Score 5/28 = 17.86 Lower Extremity Functional Scale LEFS Score 28/80 = 35% OP-PT Pain Assessment Pain Assessment Grid Paper Pain Assessment Grid Completed Yes Location Left Heel Intensity 1 Scale Used Numeric (1 - 10) Description Aching Dull Pain Alleviating Factors Cold Elevation PT-OP-G Mobility & Gait Start: 05/24/18 16:09 Freq: Status: Active Protocol: Document 05/24/18 12:00 DCW (Rec: 05/24/18 17:37 DCW [id number]) OP Mobility Evaluation Transfers Sit to Stand Used wooden block and scale inside of the parallel bars to teach patient how to maintain ~50% weight bearing. At 200 pounds, pt was able to tolerate 80 pounds (40%) of weight bearing through in right foot in a [place] before feeling discomfort. OP Gait Assessment Assistive Devices Assistive Device Axillary Crutches Orthotic/Prosthetic Devices or Brace: Yes Comments Gait Comments Pt able to ambulate in [place] with verbal commands with Axillary crutches using 3-1 point gait while maintaining < 50% weight-bearing Stair Climbing Evaluation Evaluation Level of Assist On Stairs Contact Guard Assistance Devices Stair Climbing Assistive Devices Axillary Crutches Technique/Endurance Stair Climbing Direction Ascend and Descend Stair Climbing Technique Step to Step Number of Steps Climbed 6 Comments Stair Climbing Comments Trained patient in safe ascend /descend sequencing using axillary crutches and <50% weight-bearing PT-OP-J Posture/Palpation/Skin Start: 05/24/18 17:37 Freq: Status: Active Protocol: Document 05/24/18 12:00 DCW (Rec: 05/24/18 17:41 DCW [id number]) Skin Assessment Circumference Measurement Mid-arch Location R mid-arch circumfrence Measurement (Centimeters) 26.7 Comments L measurement 24.9 cm Figure-8 Location R ankle figure-8 Measurement (Centimeters) 59.2 Comments L measurement 54.0 cm Mallolei Location R Malleoli circumfrence Measurement (Centimeters) 28.1 Comments L measurement 24.2 cm Incisional Assessment Incision Appearance/Comments Surgical incision CDI, appears to be healed 7 weeks s/p surgery, decreased scar tissue mobility PT-OP-K Range of Motion Start: 05/24/18 16:09 Freq: Status: Active Protocol: Document 05/24/18 12:00 DCW (Rec: 05/24/18 17:37 DCW [id number]) Ankle and Foot Goniometric Range of Motion Ankle and Foot Measured in Degrees Left Passive Testing Position Sitting Dorsiflexion with Knee Flexed 0 Plantarflexion 52 Inversion 18 Eversion 15 Right Active Ankle/Foot ROM WFL No Testing Position Sitting Plantarflexion 30 Inversion 12 Eversion 8 Left Active Ankle/Foot ROM WFL Yes Ankle and Foot ROM Limitations ROM Limitations Soft Tissue Tightness Bony Restriction Muscle Weakness Muscle Tone Pain Swelling Comments Knee flexed right AROM Dorsiflexion -2? from neutral PT-OP-T Assessment and Plan Start: 05/24/18 16:09 Freq: Status: Active Protocol: Document 05/24/18 12:00 DCW (Rec: 05/24/18 17:37 DCW [id number]) Physical Therapy Assessment Rehab Potential Rehabilitation Potential Excellent Evaluation Complexity Number of Personal Factors/Comorbidities 0 Number of Body Systems Impaired 1-2 Clinical Presentation at Evaluation Stable Impairments Impairments Activity Tolerance Balance Edema Functional Activities Functional Mobility Gait Integument Pain ROM Soft Tissue Mobility Strength Transfers Goals Five Impairment Edema Switchboard And Control Room Operator Goal (LTG) Circumfrence measurements of Maleolus, Figure-8, and Arch on right foot equal to left foot LTG Duration 07/22/18 Four Impairment Ankle ROM Short Term Goal (STG) PROM R ankle dorsiflexion to 10? STG Duration 06/24/18 Switchboard And Control Room Operator Goal (LTG) R ankle AROM equal to left ankle AROM LTG Duration 07/22/18 Three Impairment Stairs Snf Goal (LTG) Pt to ascend/descend staits with step-over gait and no assistive device LTG Duration 07/22/18 Two Impairment Weight bearing Short Term Goal (STG) Pt to stand with 75% weight- bearing on right foot, per surgeon's protocol STG Duration 06/07/18 Snf Goal (LTG) Pt to tolerate full weight- bearing on right foot, per surgeon's protocol LTG Duration 06/28/18 One Impairment Pt does not have an appropriate Home Exercise Program Short Term Goal (STG) Pt to be independent and complaint with an appropriate HEP STG Duration 06/24/18 Assessment Summary Assessment Pt presents 7 weeks s/p ORIF of R calcaneous fracture. Pt presents with increased edema, stiffness, weakness, and a recent (~8 week) history of complete cir-lyesyc-znjtedo on his right foot. 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 Per surgeon's protocol, pt will progress from [id number] to 50% beginning today, and progress every two weeks as tolerated to 75% and then full. Physical Therapy Plan Frequency and Duration Frequency of Treatment 2x/Week Duration of Treatment 12 weeks Plan of Care Start Date 05/24/18 Plan of Care End Date 08/16/18 Therapeutic Interventions Therapeutic Interventions Aquatic Therapy Gait Training Home Exercise Program Joint Mobilizations Manual Therapy Patient/Caregiver Education Self-Care/Home Management Soft Tissue Mobilization Taping Therapeutic Activities Therapeutic Exercises Modalities Cold Pack/Ice Massage Electric Stimulation Ultrasound Next Visit Focus/Plan Next Note Type Treatment Note Next Visit Plan ROM, strengthening, practice weight bearing, stair training , Cryocuff
--- NOTE | 2018-05-24 17:42 | PT.OPPOC ---
Current Diagnoses Pain in right ankle and joints of right foot (05/24/18) Stiffness of right ankle, not elsewhere classified (05/24/18) Stiffness of right foot, not elsewhere classified (05/24/18) Unspecified fracture of right calcaneus, subsequent encounter for fracture with routine healing (05/24/18) Fall from, out of or through roof, subsequent encounter (05/24/18) Encounter for other orthopedic aftercare (05/24/18) Provider Visit Care Team Role Provider Type Marie Kimble PA-C Primary Care Provider [facility] [employer] Specialty: Medical Address: [address] [place] [address], [id number] Email: [email or web address] Vinod Chandra MD Attending Provider Non-Staff Specialty: Orthopedics Address: [address] [place] [address], [place] [id number], [place], [address] Fax: Email: Plan Of Care PT-OP-T Assessment and Plan Start: 05/24/18 16:09 Freq: Status: Active Protocol: Document 05/24/18 12:00 DCW (Rec: 05/24/18 17:37 DCW [id number]) Physical Therapy Assessment Rehab Potential Rehabilitation Potential Excellent Evaluation Complexity Number of Personal Factors/Comorbidities 0 Number of Body Systems Impaired 1-2 Clinical Presentation at Evaluation Stable Impairments Impairments Activity Tolerance Balance Edema Functional Activities Functional Mobility Gait Integument Pain ROM Soft Tissue Mobility Strength Transfers Goals Five Impairment Edema Optical Goods Drill Operator Goal (LTG) Circumfrence measurements of Maleolus, Figure-8, and Arch on right foot equal to left foot LTG Duration 07/22/18 Four Impairment Ankle ROM Short Term Goal (STG) PROM R ankle dorsiflexion to 10? STG Duration 06/24/18 Optical Goods Drill Operator Goal (LTG) R ankle AROM equal to left ankle AROM LTG Duration 07/22/18 Three Impairment Stairs Chcf Goal (LTG) Pt to ascend/descend staits with step-over gait and no assistive device LTG Duration 07/22/18 Two Impairment Weight bearing Short Term Goal (STG) Pt to stand with 75% weight- bearing on right foot, per surgeon's protocol STG Duration 06/07/18 Optical Goods Drill Operator Goal (LTG) Pt to tolerate full weight- bearing on right foot, per surgeon's protocol LTG Duration 06/28/18 One Impairment Pt does not have an appropriate Home Exercise Program Short Term Goal (STG) Pt to be independent and complaint with an appropriate HEP STG Duration 06/24/18 Assessment Summary Assessment Pt presents 7 weeks s/p ORIF of R calcaneous fracture. Pt presents with increased edema, stiffness, weakness, and a recent (~8 week) history of complete non-weightbearing on his right foot. 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 Per surgeon's protocol, pt will progress from [id number] to 50% beginning today, and progress every two weeks as tolerated to 75% and then full. Physical Therapy Plan Frequency and Duration Frequency of Treatment 2x/Week Duration of Treatment 12 weeks Plan of Care Start Date 05/24/18 Plan of Care End Date 08/16/18 Therapeutic Interventions Therapeutic Interventions Aquatic Therapy Gait Training Home Exercise Program Joint Mobilizations Manual Therapy Patient/Caregiver Education Self-Care/Home Management Soft Tissue Mobilization Taping Therapeutic Activities Therapeutic Exercises Modalities Cold Pack/Ice Massage Electric Stimulation Ultrasound Next Visit Focus/Plan Next Note Type Treatment Note Next Visit Plan ROM, strengthening, practice weight bearing, stair training , Cryocuff Plan of Care Dates Plan of Care Start Date 05/24/18 Plan of Care End Date 08/16/18 Please Sign and Return: I have reviewed this Plan of Care and certify that the skilled therapy services above are required to meet the patient?s needs. Physician Signature Date Printed Name and Credentials Clinical Instructor Signature Printed Name and Credentials
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
== END 2018-10-27 10:03 | disposition home or self-care (01) ==
LOC: PHYS 12:00
PROVIDERS: PCP Physician Assistant; Visit Provider Orthopaedic Surgery Foot and Ankle Surgery
DX: Z47.89 Encounter for other orthopedic aftercare (principal); V54 Occupant of pick-up truck or van injured in collision with heavy transport vehicle or bus
CPT/HCPCS: 97110; 97112; 97116; 97140; 97161; 97530

== ENCOUNTER → 2021-07-02 11:49 | Outpatient (CLI) | payer OTHER, MEDICAID, SELFPAY ==
[2021-07-02 12:52] LABS: Add Manual Diff / Slide Review NO; Basophils Absolute Auto 0 /uL (0-100); Basophils Percent Auto 0.9 % (0-2); Eosinophils Absolute Auto 100 /uL (0-450); Eosinophils Percent Auto 1.6 % (2-4); Hematocrit 41.3 % (41-53); Hemoglobin 14.3 g/dL (13.5-17.5); Lymphocytes Absolute Auto 1900 /uL (1100-4500); Lymphocytes Percent Auto 38.3 % (25-40); Mean Corpuscular HGB Conc 34.7 % (30-36); Mean Corpuscular Hemoglobin 32.2 PG (26-34); Mean Corpuscular Volume 92.9 fL (80-100); Monocytes Absolute Auto 300 /uL (0-900); Monocytes Percent Auto 6.1 % (3-14); Neutrophils Absolute Auto 2600 /uL (1500-7000); Neutrophils Percent Auto 53.1 % (50-75); Platelet Count 246 X10^3/uL (150-400); Red Blood Cell Count 4.45 X10^6/uL (4.5-5.9); Red Cell Distribution Width 13.1 % (11.6-14.8)
[2021-07-02 13:20] LABS: Alanine Aminotransferase 46 IU/L (<50); Albumin 4.2 g/dL (3.5-5.0); Albumin Globulin Ratio 1.7 (1.0-2.8); Alkaline Phosphatase 62 U/L (38-126); Aspartate Aminotransferase 37 IU/L (17-59); BUN Creatinine Ratio 10.6 (6-22); Bilirubin Total 0.8 mg/dL (0.2-1.3); Blood Urea Nitrogen 10 mg/dL (9-20); Calcium 9.1 mg/dL (8.4-10.2); Carbon Dioxide 28 mmol/L (22-32); Chloride 104 mmol/L (98-107); Cholesterol 155 mg/dL (140-199); Estimated Glomerular Filt Rate > 60.0 mL/min (>60); Globulin 2.5 g/dL (1.7-4.1); Glucose 98 mg/dL (70-100); HDL Cholesterol 50 mg/dL (40-60); HEMOLYSIS < 15 (0-50); LDL Cholesterol Calculated 75 mg/dL (<100); Potassium 4.2 mmol/L (3.4-5.1); Sodium 137 mmol/L (137-145); Total Protein 6.7 g/dL (6.3-8.2); Triglycerides 152 mg/dL (35-150)
[2021-07-02 13:43] LABS: Prostate Specific Antigen Scrn 1.24 ng/mL (0.1-4.0)
[2021-07-02 13:45] LABS: TSH w/ Reflex to FT4 1.93 uIU/mL (0.47-4.68)
[2021-07-02 14:51] LABS: Vitamin D 25 Hydroxy (D3) 48.1 ng/mL (30.0-100.0)
[2021-07-09 06:11] LABS: Percent Free Testosterone 2.51 % (1.50-4.20); Testosterone Free 9.56 ng/dL (5.00-21.00); Testosterone Total 380.7 ng/dL (264.0-916.0)
== END ==
PROVIDERS: PCP Family Medicine; Referring Provider Family Medicine; Visit Provider Family Medicine
DX: E78.1 Pure hyperglyceridemia (principal); F32.A Depression, unspecified; L30.9 Dermatitis, unspecified; Z12.5 Encounter for screening for malignant neoplasm of prostate
CPT/HCPCS: 36415; 80053; 80061; 82306; 84402; 84403; 84443; 85025; G0103

== ENCOUNTER → 2022-12-31 15:42 | Outpatient (CLI) | payer OTHER, MEDICAID, SELFPAY ==
[2022-12-31 18:21] LABS: Urine N gonorrhoeae NOT DETECTED
[2022-12-31 18:53] LABS: Urine Chlamydia NOT DETECTED
[2023-01-01 03:34] LABS: RPR Screen Non Reactive (Non Reactive)
[2023-01-01 08:09] LABS: HSV 2 IGG AB < 0.91 index (0.00-0.90)
[2023-01-04 15:24] LABS: Hepatitis B Surface Antigen NEGATIVE s/c (NEGATIVE)
[2023-01-04 15:33] LABS: HIV 1 & 2 Ab/Ag 4th Gen Combo NEGATIVE (NEGATIVE); Hep C Virus Ab w/Reflex Quant NEGATIVE s/c (NEGATIVE)
== END ==
PROVIDERS: Family Provider Family Medicine; PCP Family Medicine; Referring Provider Family Medicine; Visit Provider Family Medicine
DX: Z11.3 Encounter for screening for infections with a predominantly sexual mode of transmission (principal)
CPT/HCPCS: 36415; 86592; 86695; 86696; 86803; 87340; 87389; 87491; 87591

== ENCOUNTER → 2023-04-06 07:56 | Outpatient (CLI) | payer OTHER, MEDICAID, SELFPAY ==
[2023-04-06 09:20] LABS: Add Manual Diff / Slide Review NO; Basophils Absolute Auto 0 /uL (0-100); Basophils Percent Auto 0.7 % (0-2); Eosinophils Absolute Auto 100 /uL (0-450); Eosinophils Percent Auto 1.7 % (2-4); Lymphocytes Absolute Auto 2200 /uL (1100-4500); Mean Corpuscular HGB Conc 34.2 % (30-36); Mean Corpuscular Hemoglobin 32.1 PG (26-34); Mean Corpuscular Volume 93.8 fL (80-100); Monocytes Absolute Auto 400 /uL (0-900); Monocytes Percent Auto 7.4 % (3-14); Neutrophils Absolute Auto 2800 /uL (1500-7000); Neutrophils Percent Auto 50.2 % (50-75); Platelet Count 199 X10^3/uL (150-400); Red Blood Cell Count 4.37 X10^6/uL (4.5-5.9); Red Cell Distribution Width 14.1 % (11.6-14.8); White Blood Cell Count 5.5 X10^3/uL (4.5-11.0)
[2023-04-06 09:23] LABS: Alanine Aminotransferase 24 IU/L (<50); Albumin Globulin Ratio 1.5 (1.0-2.8); Alkaline Phosphatase 53 U/L (38-126); Aspartate Aminotransferase 26 IU/L (17-59); BUN Creatinine Ratio 11.8 (6-22); Bilirubin Total 0.9 mg/dL (0.2-1.3); Blood Urea Nitrogen 10 mg/dL (9-20); Calcium 9.5 mg/dL (8.4-10.2); Carbon Dioxide 27 mmol/L (22-32); Chloride 100 mmol/L (98-107); Cholesterol 162 mg/dL (140-199); Estimated Glomerular Filt Rate > 60 mL/min (>60); Globulin 2.6 g/dL (1.7-4.1); Glucose 90 mg/dL (70-100); HDL Cholesterol 75 mg/dL (40-60); HEMOLYSIS < 15 (0-50); LDL Cholesterol Calculated 73 mg/dL (<100); Sodium 134 mmol/L (137-145); Total Protein 6.6 g/dL (6.3-8.2); Triglycerides 68 mg/dL (35-150)
[2023-04-06 09:52] LABS: Prostate Specific Antigen Scrn 1.35 ng/mL (0.1-4.0)
[2023-04-06 09:54] LABS: Vitamin D 25 Hydroxy (D3) 52.8 ng/mL (30.0-100.0)
[2023-04-06 11:24] LABS: Urine N gonorrhoeae NOT DETECTED
[2023-04-06 11:50] LABS: Urine Chlamydia NOT DETECTED
[2023-04-07 05:18] LABS: Apolipoprotein B 56 mg/dL (<90)
[2023-04-07 07:13] LABS: RPR Screen Non Reactive (Non Reactive)
[2023-04-07 17:28] LABS: Hepatitis B Surface Antigen NEGATIVE s/c (NEGATIVE)
[2023-04-07 17:52] LABS: HIV 1 & 2 Ab/Ag 4th Gen Combo NEGATIVE (NEGATIVE); Hep C Virus Ab w/Reflex Quant NEGATIVE s/c (NEGATIVE)
[2023-04-08 03:36] LABS: Lipoprotein (a) <8.4 nmol/L (<75.0)
[2023-04-13 09:32] LABS: Percent Free Testosterone 1.98 % (1.50-4.20); Testosterone Free 13.66 ng/dL (5.00-21.00); Testosterone Total 689.8 ng/dL (264.0-916.0)
[2023-04-20 14:00] LABS: HSV 2 IGG AB < 0.91
== END ==
PROVIDERS: Family Provider Family Medicine; PCP Family Medicine; Referring Provider Family Medicine; Visit Provider Family Medicine
DX: Z11.3 Encounter for screening for infections with a predominantly sexual mode of transmission (principal); E78.1 Pure hyperglyceridemia; R03.0 Elevated blood-pressure reading, without diagnosis of hypertension; L30.9 Dermatitis, unspecified; R79.89 Other specified abnormal findings of blood chemistry; E55.9 Vitamin D deficiency, unspecified; Z12.5 Encounter for screening for malignant neoplasm of prostate
CPT/HCPCS: 36415; 80053; 80061; 82172; 82306; 83695; 84402; 84403; 85025; 86592; 86695; 86696; 86803; 87340; 87389; 87491; 87591; G0103

== ENCOUNTER → 2023-06-08 15:57 | Outpatient (CLI) | payer OTHER, MEDICAID, SELFPAY ==
[2023-06-08 17:36] LABS: Urine N gonorrhoeae NOT DETECTED
[2023-06-08 17:41] LABS: Urine Chlamydia NOT DETECTED
== END ==
PROVIDERS: Family Provider Family Medicine; PCP Family Medicine; Visit Provider Nurse Practitioner Family
DX: R19.7 Diarrhea, unspecified (principal); Z72.51 High risk heterosexual behavior
CPT/HCPCS: 87491; 87591

== ENCOUNTER → 2023-06-08 16:07 | Outpatient (CLI) | payer OTHER, MEDICAID, SELFPAY ==
[2023-06-09 15:43] LABS: Hepatitis B Surface Antigen NEGATIVE s/c (NEGATIVE)
[2023-06-09 16:13] LABS: HIV 1 & 2 Ab/Ag 4th Gen Combo NEGATIVE (NEGATIVE); Hep C Virus Ab w/Reflex Quant NEGATIVE s/c (NEGATIVE)
[2023-06-10 03:30] LABS: RPR Screen Non Reactive (Non Reactive)
[2023-06-13 10:14] LABS: HSV 2 IGG AB < 0.91
== END ==
PROVIDERS: Family Provider Family Medicine; PCP Family Medicine; Referring Provider Nurse Practitioner Family; Visit Provider Nurse Practitioner Family
DX: R19.7 Diarrhea, unspecified (principal); Z72.51 High risk heterosexual behavior
CPT/HCPCS: 36415; 86592; 86695; 86696; 86803; 87340; 87389; 87491; 87591

== ENCOUNTER → 2023-06-09 11:21 | Outpatient (CLI) | payer OTHER, MEDICAID, SELFPAY ==
[2023-06-09 12:50] LABS: Clostridium Difficile Tox PCR Negative for C. diff (Negative)
[2023-06-09 13:42] LABS: Occult Blood 1 Negative (Negative)
== END ==
LOC: LAB 11:22
PROVIDERS: Family Provider Family Medicine; PCP Family Medicine; Referring Provider Nurse Practitioner Family; Visit Provider Nurse Practitioner Family
DX: R19.7 Diarrhea, unspecified (principal)
CPT/HCPCS: 82270; 87045; 87329; 87493

== ENCOUNTER 2023-08-16 07:24 | Day surgery (SDC) | payer OTHER, MEDICAID, SELFPAY ==
[2023-08-02 08:47] VITALS: BMI 24.3
[2023-08-16] MEDS: LACTATED RINGERS 1,000 ML 42 ML IV (07:42)
[2023-08-16 07:58] VITALS: BP 136/86; PULSE 69; RESP 18; TEMP 36.4; O2SAT 100; BMI 24.6
[2023-08-16] MEDS: ACETAMINOPHEN 325 MG TABLET 975 MG PO (08:14)
[2023-08-16] MEDS: SCOPOLAMINE 1 PATCH TOP (08:21)
--- NOTE | 2023-08-16 09:19 | PM.PREOP ---
Pre-operative Note COVID-19 COVID-19 status: Not tested Interval Note History & Physical reviewed/Exam performed by Physician: Yes Changes to H&P: No ASA Class (for procedural sedation): I
[2023-08-16] MEDS: CEFAZOLIN 2 GM/100 ML PREMIX 100 ML IV (09:31)
--- NOTE | 2023-08-16 09:56 | SUR.OPER ---
Supine on padded OR bed, head on pillow, arms padded and tucked at sides, legs uncrossed, safety belt at thigh,
[2023-08-16] MEDS: BUPIVACAINE 0.5% (PF) 30 ML VIAL INJ (10:15)
--- NOTE | 2023-08-16 10:40 | PM.OP.1 ---
Operative Date/Time/Diagnoses Date of procedure: 08/16/23 Time of procedure: 10:40 Pre-op diagnosis: Right inguinal hernia Post-op diagnosis: same Procedure & Clinicians Procedure: Laparoscopic right inguinal hernia repair with mesh Same procedure as scheduled: Yes Surgeon: Anish Cr Manager Of Administration: Nando Avelar Anesthesia Type: General Operative Notes Procedure in detail: The patient was given preoperative antibiotics. The patient was brought to the operating room, placed on the table in the supine position with the arms tucked and general anesthesia was induced. The abdomen was prepped and draped in the usual fashion. A time-out was performed. A 1 cm supraumbilical incision was created and dissection was carried down to the anterior sheath. The fascia was scored transversely with cautery. The inferior leaf of the fascia was grasped with a Salazar clamp to elevate abdominal wall and a Peon clamp was used to pandey the peritoneum. The Herbert port was placed and the abdomen was insufflated to 15 mmHg. The camera was inserted, there was no evidence of any injury from the entry. There was an indirect right inguinal hernia. There was no left inguinal defect. 5 mm ports were placed under direct vision in the mid left and mid right abdomen. The patient was positioned in steep Trendelenburg. We created right peritoneal flap. The peritoneum was dissected off the right cord structures. A large right Bard mesh was brought in and placed over the defect with the medial edge against Aldo's ligament. We then closed the peritoneal flap with a running 3-0 barbed suture. We took one last look around the abdomen and saw no other abnormalities. The suture was removed and accounted for. The 5 mm ports were removed under direct vision. The abdomen was desufflated. The Herbert port was removed. Additional local was injected into the fascia and the fascial incision was closed with 2 interrupted 0 Vicryl sutures. The skin incisions were closed with 4 Monocryl, Steri-Strips and Band-Aids. Nando MILES provided assistance with exposure, retraction and closure of incisions. Post-operative Condition: stable Disposition: PACU
[2023-08-16 10:46] VITALS: BP 118/81; PULSE 87; RESP 12; TEMP 36.7; O2SAT 99
[2023-08-16 10:52] VITALS: BP 113/81; PULSE 72; RESP 14; O2SAT 98
[2023-08-16 10:56] VITALS: BP 124/86; PULSE 74; RESP 11; O2SAT 99
[2023-08-16 11:02] VITALS: BP 120/84; PULSE 68; RESP 11; O2SAT 99
[2023-08-16] MEDS: KETOROLAC 30 MG/ML VIAL IV (11:08)
[2023-08-16 11:12] VITALS: BP 128/88; PULSE 64; RESP 12; TEMP 36.1; O2SAT 97
[2023-08-16] MEDS: OXYCODONE IR 5 MG TABLET PO (11:15)
== END 2023-08-16 11:48 | disposition home or self-care (01) ==
PROVIDERS: Family Provider Family Medicine; PCP Family Medicine; Referring Provider Surgery; Visit Provider Surgery
PROC: 0YQ54ZZ Repair Right Inguinal Region, Percutaneous Endoscopic Approach (ICD-10-PCS; CPT 49650; principal; 2023-08-16 08:45)
DX: K40.90 Unilateral inguinal hernia, without obstruction or gangrene, not specified as recurrent (principal)
CPT/HCPCS: 49650; J0330; J0690; J1100; J1885; J2250; J2405; J2704; J3010

== ENCOUNTER 2023-12-01 07:47 | Day surgery (SDC) | payer OTHER, MEDICAID, SELFPAY ==
[2023-12-01 08:02] VITALS: BP 144/90; PULSE 66; RESP 17; TEMP 36.4; O2SAT 97
[2023-12-01] MEDS: LACTATED RINGERS 1,000 ML 42 ML IV (08:16)
--- NOTE | 2023-12-01 08:39 | SUR.PREOP ---
Pt reports drinking coffee with cream at 0630 hours today, states he did not understand pre procedure instructions. Anesthesia provider made aware. Kenna delays procedure for [address] Cr orders the patient sent home with IV in place. Patient provided with clothing, changes in room. Patient ambulates from perez with steady gait.
[2023-12-01 11:50] VITALS: BP 136/84; PULSE 63; RESP 17; TEMP 36.5; O2SAT 100
--- NOTE | 2023-12-01 12:28 | PM.HP.1 ---
History of Present Illness History of Present Illness Date Patient Seen: 12/01/23 Chief complaint: SDC Narrative: Marky is a 58-year-old man here for colonoscopy. See previous office note for details. [facility] Medical History (Updated 12/01/23 @ 12:29 by Anish Cr MD) Eczema Anemia GERD (gastroesophageal reflux disease) Hypertriglyceridemia Surgical History (Updated 08/02/23 @ 14:27 by Janina Sandoval, MIKE) History of surgery (2017) Hx of hemorrhoidectomy (~2013) Status post appendectomy (~2013) Family History Sister Age: 53 Hypothyroid Social History household members: family Smoking Status: Former smoker alcohol intake: former Meds Home Medications and Allergies Home Medications Medication Instructions Recorded Confirmed Type omeprazole 20 mg capsule,delayed 20 mg PO DAILY 02/02/18 08/31/23 History release triamcinolone acetonide 0.5 % 1 applic topical BID #15 grams 05/23/23 08/31/23 Rx topical cream Allergies Allergy/AdvReac Type Severity Reaction Status Date / Time dog dander [DOG DANDER] Allergy Unknown Verified 08/31/23 13:59 sun Allergy Intermediate Rash Uncoded 08/31/23 13:59 Exam Vital Signs (past 8 hours): - 12/01/23 08:02 12/01/23 11:50 Temperature 97.5 F L 97.7 F Pulse Rate 66 63 Respiratory Rate 17 17 Blood Pressure 144/90 H 136/84 Pulse Oximetry 97 100 Oxygen Delivery Method Room Air Room Air Oxygen Delivery Method Room Air Const General: healthy appearing Resp Effort & Inspection: normal respiratory effort Assessment & Plan Assessment and plan (1) Colon cancer screening: Status: Acute Plan We reviewed the risks and benefits of colonoscopy for colon cancer screening and he would like to proceed. Time-Based Coding :: [TOTAL MINUTES] spent with patient and on the chart (including review of chart, obtaining history, exam, reviewing outside data, placing orders, documenting exam and treatment plan, and counseling patient) on [DATE].
[2023-12-01 12:56] VITALS: BP 93/61; PULSE 76; RESP 12; TEMP 36.8; O2SAT 100
--- NOTE | 2023-12-01 12:56 | PM.OP.COLON ---
Operative Date/Time/Diagnoses Date of procedure: 12/01/23 Time of procedure: 12:56 Pre-op diagnosis: Colon cancer screening Post-op diagnosis: same Procedure & Clinicians Study performed: Colonoscopy Same procedure as scheduled: Yes Surgeon: Anish Cr Procedure Notes Procedure in detail: Surgeon: Anish Cr MD Anesthesia: Isabella Mosher CRNA Procedure: The patient was brought to the endoscopy suite, placed in left lateral decubitus position. The patient was connected to monitoring devices. A time-out was performed. Sedation was administered. Once the patient was adequately sedated, a digital rectal exam was performed and was normal. The scope was then inserted and advanced to the cecum where the appendiceal orifice was identified and photographed. The scope was then slowly withdrawn over greater than 6 minutes. The mucosa was thoroughly inspected. There was some mild sigmoid colon diverticulosis. No other abnormalities were found. The scope was retroflexed in the rectum. Some scar tissue from the prior hemorrhoidectomy was noted. No other abnormalities were noted The scope was straightened and removed. The patient was awakened and brought to recovery. Scope withdrawal time: 16 minutes Sedation time: 19 minutes EBL: 0 Findings: Mild sigmoid colon diverticulosis Post-procedure Recommendations: Colonoscopy in 10 years Disposition: PACU
[2023-12-01 13:03] VITALS: BP 103/65; PULSE 71; RESP 12; TEMP 36.8; O2SAT 100
[2023-12-01 13:06] VITALS: BP 108/74; PULSE 65; RESP 12; TEMP 36.7; O2SAT 100
[2023-12-01 13:16] VITALS: BP 115/70; PULSE 65; RESP 15; TEMP 36.6; O2SAT 99
== END 2023-12-01 13:30 | disposition home or self-care (01) ==
PROVIDERS: Family Provider Family Medicine; PCP Family Medicine; Referring Provider Surgery; Visit Provider Surgery
PROC: 0DJD8ZZ Inspection of Lower Intestinal Tract, Via Natural or Artificial Opening Endoscopic (ICD-10-PCS; CPT 45378; principal; 2023-12-01 08:45)
DX: Z12.11 Encounter for screening for malignant neoplasm of colon (principal); K57.30 Diverticulosis of large intestine without perforation or abscess without bleeding
CPT/HCPCS: 45378; J2704

== ENCOUNTER → 2024-01-12 17:03 | Outpatient (CLI) | payer OTHER, MEDICAID, SELFPAY | PROVIDERS: Family Provider Family Medicine; PCP Family Medicine; Visit Provider Physician Assistant | DX: Z20.2 Contact with and (suspected) exposure to infections with a predominantly sexual mode of transmission (principal) | CPT/HCPCS: 87491; 87591 ==

== ENCOUNTER → 2024-01-12 17:14 | Outpatient (CLI) | payer OTHER, MEDICAID, SELFPAY ==
[2024-01-12 21:32] LABS: HIV 1 & 2 Ab/Ag 4th Gen Combo NEGATIVE (NEGATIVE)
[2024-01-14 03:15] LABS: HSV 2 IGG AB < 0.91 index (0.00-0.90)
== END ==
PROVIDERS: Family Provider Family Medicine; PCP Family Medicine; Referring Provider Physician Assistant; Visit Provider Physician Assistant
DX: Z20.2 Contact with and (suspected) exposure to infections with a predominantly sexual mode of transmission (principal)
CPT/HCPCS: 36415; 86592; 86695; 86696; 87389

== ENCOUNTER → 2024-09-07 12:01 | Outpatient (CLI) | payer OTHER, SELFPAY ==
[2024-09-07 12:45] LABS: Add Manual Diff / Slide Review NO; Basophils Absolute Auto 100 /uL (0-100); Eosinophils Absolute Auto 100 /uL (0-450); Eosinophils Percent Auto 2.1 % (2-4); Hematocrit 41.8 % (41-53); Hemoglobin 14.5 g/dL (13.5-17.5); Lymphocytes Absolute Auto 2300 /uL (1100-4500); Lymphocytes Percent Auto 39.5 % (25-40); Mean Corpuscular HGB Conc 34.6 % (30-36); Mean Corpuscular Hemoglobin 31.7 PG (26-34); Mean Corpuscular Volume 91.8 fL (80-100); Monocytes Absolute Auto 400 /uL (0-900); Monocytes Percent Auto 7.2 % (3-14); Neutrophils Absolute Auto 3000 /uL (1500-7000); Neutrophils Percent Auto 50.2 % (50-75); Platelet Count 212 X10^3/uL (150-400); Red Blood Cell Count 4.55 X10^6/uL (4.5-5.9); Red Cell Distribution Width 13.3 % (11.6-14.8); White Blood Cell Count 5.9 X10^3/uL (4.5-11.0)
[2024-09-07 13:46] LABS: Alanine Aminotransferase 20 IU/L (<50); Albumin 4.3 g/dL (3.5-5.0); Albumin Globulin Ratio 1.8 (1.0-2.8); Alkaline Phosphatase 51 U/L (38-126); Aspartate Aminotransferase 25 IU/L (17-59); BUN Creatinine Ratio 11.8 (6-22); Bilirubin Total 0.8 mg/dL (0.2-1.3); Blood Urea Nitrogen 11 mg/dL (9-20); Calcium 9.2 mg/dL (8.4-10.2); Carbon Dioxide 29 mmol/L (22-32); Chloride 102 mmol/L (98-107); Cholesterol 146 mg/dL (140-199); Estimated Glomerular Filt Rate > 60 mL/min (>60); Globulin 2.4 g/dL (1.7-4.1); Glucose 96 mg/dL (70-99); HDL Cholesterol 54 mg/dL (40-60); HEMOLYSIS < 15 (0-50); LDL Cholesterol Calculated 69 mg/dL (<100); Potassium 4.3 mmol/L (3.4-5.1); Sodium 136 mmol/L (137-145); Total Protein 6.7 g/dL (6.3-8.2); Triglycerides 116 mg/dL (35-150)
[2024-09-07 14:07] LABS: TSH w/ Reflex to FT4 1.69 uIU/mL (0.47-4.68)
[2024-09-07 14:16] LABS: Prostate Specific Antigen Scrn 1.74 ng/mL (0.1-4.0)
== END ==
PROVIDERS: Family Provider Family Medicine; PCP Family Medicine; Referring Provider Family Medicine; Visit Provider Family Medicine
DX: Z12.5 Encounter for screening for malignant neoplasm of prostate (principal); Z00.00 Encounter for general adult medical examination without abnormal findings; E78.1 Pure hyperglyceridemia; R79.89 Other specified abnormal findings of blood chemistry; L30.9 Dermatitis, unspecified
CPT/HCPCS: 80053; 80061; 84443; 85025; G0103

== ENCOUNTER → 2024-09-21 14:50 | Outpatient (CLI) | payer OTHER, SELFPAY ==
--- NOTE | 2024-09-21 14:51 | DI.ECHO.S_ITS ---
[facility]---------+ [facility] : : [address] : : [place] : : [address] : : Phone: [phone] Echocardiogram Report + + :Name: DAVIE JAMA Study Date: 09/21/2024 Height: 75 in : :Hospital ReadingLocation: Weight: 200 lb : : Gender: Male BSA: 2.2 m2 : :: 1965 Age: 59 yrs BP: 141/88 mmHg: :Reason For Study: MURMUR : :Ordering Physician: LORRAINE, : :JADEN Performed By: Joshua Wong : :Referring: JADEN PETERS : + + Interpretation Summary The ejection fraction is estimated to be 60-65%. Diastolic parameters suggest probable normal left ventricular diastolic function and normal filling pressures. The right ventricle is mildly dilated. The right ventricular systolic function is normal. The right atrium is mild to moderately dilated. There is mild to moderate tricuspid regurgitation. The right ventricular systolic pressure is estimated to be at least 42 mmHg based on an estimated right atrial pressure of 8 mm Hg. Procedure: A two-dimensional transthoracic echocardiogram with color flow and Doppler was performed. The study quality was technically good. There is no prior echocardiogram noted for this patient. The patient was in normal sinus rhythm during the exam. Left Ventricle: The left ventricle is normal in size. There is normal left ventricular wall thickness. There is no ventricular septal defect visualized. The ejection fraction is estimated to be 60-65%. There are no focal wall motion abnormalities. Diastolic parameters suggest probable normal left ventricular diastolic function and normal filling pressures. Right Ventricle: The right ventricle is mildly dilated. The right ventricular systolic function is normal. Atria: Borderline left atrial enlargement. The right atrium is mild to moderately dilated. There is no Doppler evidence for an interatrial shunt. Mitral Valve: The mitral valve leaflets appear normal. There is no evidence of stenosis, fluttering, or prolapse. There is trace mitral regurgitation. Aortic Valve: The aortic valve is trileaflet. The aortic valve opens well. There is no aortic valve stenosis. No aortic regurgitation is present. Tricuspid Valve: The tricuspid valve leaflets are thin and pliable. There is mild to moderate tricuspid regurgitation. The right ventricular systolic pressure is estimated to be at least 42 mmHg based on an estimated right atrial pressure of 8 mm Hg. Pulmonic Valve: The pulmonic valve leaflets are thin and pliable; valve motion is normal. There is trace pulmonic regurgitation. Great Vessels: The aortic root is normal size. The dimensions of the ascending aorta are normal. The pulmonary artery is normal size. The IVC is dilated (diameter is greater than 2.1 cm) yet it collapses greater than 50% with a sniff. This suggests a right atrial pressure of 8 mm Hg. Pericardium/ Pleura There is no pericardial effusion. There is no pleural effusion. MMode/2D Measurements & Calculations LVIDd: 5.1 cm LVOT diam: 2.3 cm LVIDs: 3.0 cm Ao root diam: 3.3 cm FS: 40.4 % asc Aorta Diam: 3.5 cm EPSS: 0.55 cm IVSd: 0.92 cm LVPWd: 0.94 cm LV garay. diameter/BSA (cm/m^2): 2.3 LV sys. diameter/BSA (cm/m^2): 1.4 LA A2 area: 23.4 cm2 RA long axis: 6.2 cm LA A4 area: 19.7 cm2 RA area: 28.0 cm2 LA length (vol): 5.1 cm RA vol: 107.3 ml LA vol: 76.1 ml RA : 48.9 ml/m2 LA vol index: 34.7 ml/m2 IVC diam: 2.2 cm RVD1 (basal): 4.1 cm RVD2 (mid): 3.1 cm TAPSE: 3.0 cm Doppler Measurements & Calculations Ao V2 max: 169.6 cm/sec LVOT Max Miguel Ángel: 124.4 cm/sec Ao V2 mean: 106.5 cm/sec LV V1 max P.2 mmHg Ao max P.5 mmHg LV V1 VTI: 25.5 cm Ao mean P.4 mmHg DARIELA(I,D): 3.5 cm2 Ao V2 VTI: 30.4 cm DARIELA(V,D): 3.0 cm2 sev ratio: 0.84 DARIELA indexed to BSA (cm^2/m^2): 1.6 MV E max miguel ángel: 84.8 cm/sec TR max miguel ángel: 251.5 cm/sec MV A max miguel ángel: 60.0 cm/sec TR max P.3 mmHg MV E/A: 1.4 PA V2 max: 104.9 cm/sec Med Peak E' Miguel Ángel: 9.3 cm/sec PA V2 mean: 72.7 cm/sec E/E' med: 9.1 PA mean P.3 mmHg Lat Peak E' Miguel Ángel: 8.5 cm/sec PA pr(Accel): 29.3 mmHg E/E' lat: 10.0 E/e' average: 9.6 MV dec time: 0.23 sec [facility] 105.7 ml Reading Physician:05:10 PM
== END ==
PROVIDERS: Family Provider Family Medicine; PCP Family Medicine; Referring Provider Family Medicine; Visit Provider Family Medicine
DX: I07.1 Rheumatic tricuspid insufficiency (principal); R01.1 Cardiac murmur, unspecified
CPT/HCPCS: 93306

== ENCOUNTER → 2025-04-18 16:38 | Outpatient (CLI) | payer OTHER, SELFPAY ==
--- NOTE | 2025-04-18 16:41 | DI.RAD.S_ITS ---
PROCEDURE: XR FINGER RT MIN 2V INDICATIONS: laceration to tip of finger TECHNIQUE: AP hand, 2 views of the 3rd finger(s) acquired. COMPARISON: None. FINDINGS: Bones: No fractures or dislocations. No suspicious bony lesions. Soft tissues: No suspicious soft tissue calcifications. No radiodense foreign body visualized. IMPRESSION: No acute bony abnormality. No radiodense soft tissue density. Approved by: Verenice Connor M.D.,Ph.D. on 04/18/2025 at 17:17
== END ==
LOC: RAD 16:40
PROVIDERS: Family Provider Family Medicine; PCP Family Medicine; Referring Provider Physician Assistant; Visit Provider Physician Assistant
DX: S61.213A Laceration without foreign body of left middle finger without damage to nail, initial encounter (principal)
CPT/HCPCS: 73140